=== PATIENT | male | born 1990 | race African-American/Black ===

== ENCOUNTER 2023-03-12 05:52 | Emergency (ER) | payer MEDICARE ==
[~2023-03-12] VITALS: Ht 182.9 cm; Wt 77.1 kg
[~2023-03-12 05:52] MED LIST: ACYC-106 PO; DIVA250T4 PO
[2023-03-12] MEDS ORDERED: ACYC-106 PO (07:41)
[2023-03-12] MEDS ORDERED: DIVA-78 PO (08:43)
[2023-03-12] MEDS ORDERED: DOXY100C5 PO (08:43)
[2023-03-12] MEDS ORDERED: IBUP-1957 PO (08:44)
[2023-03-12 09:27] VITALS: BP 105/69; O2SAT 98
== END 2023-03-12 09:28 | disposition home or self-care (01) ==
LOC: ER 06:00
DX: R50.9 Fever, unspecified (principal); Z76.0 Encounter for issue of repeat prescription; Z79.1 Long term (current) use of non-steroidal anti-inflammatories (NSAID); Z79.2 Long term (current) use of antibiotics; Z79.899 Other long term (current) drug therapy; Z20.822 Contact with and (suspected) exposure to COVID-19
CPT/HCPCS: A4663